=== PATIENT | female | born 1965 | race Caucasian/White ===

== ENCOUNTER → 2017-07-12 | Outpatient (CLI) | payer OTHER ==
[2013-12-05 12:31] VITALS: BMI 20.1
[~2017-07-12] MED LIST: CALC-515 PO; CALC500T6 PO; CHOL100062 PO; ESTR1PAT99 TD; FIBE1TAB5 PO; GADOBENATE 529MG/1ML 15ML VIAL IVP ONE; IBUP1TAB84 PO; Ibuprofen PO; MULT-1335 PO; OMEG-26 PO; PER PO
--- NOTE | 2017-07-12 14:23 | RADIOLOGY IMAGING REPORT ---
FACILITY: [facility] PATIENT NAME: Michelle Watters : 1965 MR: [id number] V: [id number] EXAM DATE: ORDERING PHYSICIAN: CHELSY KYLE TECHNOLOGIST: [facility] Patient: Michelle Watters : 1965 Visit/Account:[id number] Date of Sevice: 07/12/2017 BRAIN W W/O CONTRAST ADDITIONAL PERTINENT HISTORY: Blurred vision, diplopia COMPARISON STUDIES: None. TECHNIQUE: Multi-planar, multi-sequence brain MRI was performed with and without IV contrast adminis tration. Contrast: 13 mL MultiHance FINDINGS: Ventricles / sulci / fissures: Negative. Masses / hemorrhage / midline shift: Negative. White matter: There are several small foci of increased T2 and FLAIR signal intensity in the subcort ical white matter in the frontal lobes bilaterally. There is no associated contrast enhancement rest ricted diffusion or mass effect. Damico-white differentiation: Normal. Extra-axial fluid collections: Negative. Intracranial vasculature and dural sinuses: Negative. Skull base / calvarium: Negative. Visualized mastoid air cells / paranasal sinuses: Well aerated. Orbits: Negative. Upper neck:Negative. IMPRESSION: There are several small foci of increased T2 and FLAIR signal intensity in the subcortical white nhan er in the frontal lobes bilaterally which appears nonspecific with no evidence of contrast enhancemen t restricted diffusion mass effect or hemorrhage. This may represent subtle chronic microvascular is chemic changes. Differential diagnosis would include vasculitis or a mild demyelinating process. Report Dictated By: Christine Nunez MD at 07/12/2017 2:12 PM Report E-Signed By: Christine Nunez MD at 07/12/2017 2:19 PM WSN:[id number]
== END ==
LOC: MRI 12:22
PROVIDERS: ATTEND Physician Assistant Medical
DX: R94.09 Abnormal results of other function studies of central nervous system (principal)
CPT/HCPCS: 70553; A9577

== ENCOUNTER 2017-08-20 09:44 | Emergency (ER) | payer OTHER ==
[2013-12-05 12:31] VITALS: Wt 54.4 kg
[~2017-08-20 09:44] MED LIST changes: -GADOBENATE 529MG/1ML 15ML VIAL IVP ONE
--- NOTE | 2017-08-20 10:16 | ER Report ---
History and Physical Time Seen By MD: 10:16 HPI/ROS CHIEF COMPLAINT: Insomnia and anxiety HISTORY OF PRESENT ILLNESS: This is a 51 year old female. She is having severe insomnia since her brain surgery. 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 She has only slept about 1 hour in the last 24. She has a prescription for Lorazepam 0.5mg, and this has helped in the past, but not helping now. She has tried over the counter Unisom, which caused night terrors and no sleep. Past use of Benadryl has caused restlessness rather than sleepiness. She has been prescribed Zolpidem, but has not used this yet. Also given a sample pack of Belsomra, but did not sleep and seemed to worsen symptoms. She is seeing neurology in two days, but feels like she is at a point that she cannot wait that long. She has chronic symptoms of headache and blurred vision after her surgery, but otherwise doing alright. Allergies: Coded Allergies: No Known Drug Allergies (Unverified , 08/20/17) Home Meds Active Scripts Trazodone Hcl (TRAZODONE HCL) 150 Mg Tablet, 150 MG PO QHS, #10 TAB 0 Refills Prov:WALKER CHRISTIANSON MD 08/20/17 Diazepam (VALIUM) 10 Mg Tablet, 10 MG PO Q8H Y for ANXIETY, #15 TAB 0 Refills Prov:WALKER CHRISTIANSON MD 08/20/17 Estradiol (CLIMARA 0.1 MG) 1 Each Patch.tdwk, 0.1 EACH TD QWEEK, #4 PATCH.WK 12 Refills Prov:KATE DUPREE MD 12/05/13 Reported Medications Zolpidem Tartrate (AMBIEN) 10 Mg Tablet, 1 TAB PO QHS, TAB 08/20/17 Lorazepam (LORAZEPAM) 0.5 Mg Tablet, 0.5 MG PO Q4-6H 08/20/17 Lisinopril (LISINOPRIL) 10 Mg Tablet, 10 MG PO QDAY, TAB 08/20/17 Hydrochlorothiazide (HYDROCHLOROTHIAZIDE) 25 Mg Tablet, 12.5 TAB PO QDAY, TAB 08/20/17 Discontinued Scripts Oxycodone/Acetaminophen (OXYCODONE/ACETAMINOPHEN 5MG/325 MG) 1 Tab Tab, 1-2 TAB PO Q4H Y for PAIN, #30 TAB 0 Refills Prov:KATE DUPREE MD 12/05/13 [Ibuprofen] 800 MG TAB No Conflict Check, 800 MG PO Q8H Y for PAIN, #30 TAB 0 Refills Prov:KATE DUPREE MD 12/05/13 Reviewed Nurses Notes: Yes Constitutional Vital Sign - Last 24 Hours 08/20/17 08/20/17 10:23 11:15 Temp 98.7 Pulse 94 78 Resp 18 17 B/P (MAP) 113/90 110/75 (87) Pulse Ox 96 96 O2 Delivery Room Air Room Air Physical Exam General: Alert, but very distressed and anxious. Psych: normal speech pattern and content. Normal interactions. Extreme anxiety affect and mood. Reaction to stress, but no signs of hopelessness or depression at this time Medical Decision Making ED Course/Re-evaluation ED Course Discussion regarding medication options. No major neuro exam today, dealt mainly with trying to help control anxiety and sleep right now. Discussed several medications options. 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 Short term management by switching from Lorazepam to Valium 10mg, up to 3 times a day, to help with sleep and anxiety. Adding Trazodone 150mg at bedtime as well. Recommended against the Zolpidem at this time, although this can be tried if Valium and Trazodone is not effective. Decision to Disposition Date: Aug 20, 2017 Decision to Disposition Time: 10:56 Depart Departure Latest Vital Signs Vital Signs Date Time Temp Pulse Resp B/P (MAP) Pulse Ox O2 Delivery O2 Flow Rate FiO2 08/20/17 11:15 78 17 110/75 (87) 96 Room Air 08/20/17 10:23 98.7 Impression: Primary Impression: Insomnia Additional Impression: Anxiety Condition: Condition Unchanged Disposition: HOME OR SELF-CARE Referrals: JASVIR PONCE DO (PCP) New Scripts Trazodone Hcl (TRAZODONE HCL) 150 Mg Tablet 150 MG PO QHS, #10 TAB 0 Refills Prov: WALKER CHRISTIANSON MD 08/20/17 Diazepam (VALIUM) 10 Mg Tablet 10 MG PO Q8H Y for ANXIETY, #15 TAB 0 Refills Prov: WALKER CHRISTIANSON MD 08/20/17 Patient Instructions: Anxiety (ED), Insomnia (ED) Additional Instructions: For anxiety, try taking Valium 10mg tablets, every 8 hours as needed. This medicine taken at bedtime may be able to make you sleep. You can also try taking Trazodone 150mg at bedtime to help with sleep. Stop the Lorazepam. Hold off on taking the Ambien at this time, but this would be an option if the Valium and Trazodone do not work. You can take both Valium and Trazodone at bedtime if needed. Follow-up with your neurologist as planned. Problem Qualifiers Primary Impression: Insomnia Insomnia type: due to medical condition Qualified Codes: G47.01 - Insomnia due to medical condition WALKER CHRISTIANSON MD Aug 20, 2017 10:16
[2017-08-20] MEDS ORDERED: ZOLP-350 PO (11:01)
[2017-08-20] MEDS ORDERED: HYDR-2966 PO (11:01)
[2017-08-20] MEDS ORDERED: LISI-362 PO (11:01)
[2017-08-20] MEDS ORDERED: LORA-630 PO (11:01)
[2017-08-20] MEDS ORDERED: DIAZ-305 PO (11:04)
[2017-08-20] MEDS ORDERED: TRAZ150T8 PO (11:04)
[2017-08-20 11:15] VITALS: BP 110/75
== END 2017-08-20 11:15 | disposition home or self-care (01) ==
LOC: ER 10:00
DX: G47.01 Insomnia due to medical condition (principal); F41.9 Anxiety disorder, unspecified
CPT/HCPCS: 99281

== ENCOUNTER → 2017-12-19 | Outpatient (CLI) | payer OTHER ==
[2013-12-05 12:31] VITALS: BMI 20.1
[~2017-12-19] MED LIST changes: +AMLO-113 PO; +ATOR10TA24 PO; +BUSP15TA69 PO; +CETI10CA8 PO; +DIAZ-305 PO; +HYDR-2966 PO; +LISI-362 PO; +LORA-630 PO; +LOSA25TA52 PO; +MELA1TAB38; +TRAZ150T8 PO; +ZOLP-350 PO
== END ==
LOC: AUD 09:00
PROVIDERS: ATTEND Otolaryngology
DX: H92.03 Otalgia, bilateral (principal); H93.12 Tinnitus, left ear
CPT/HCPCS: 92567

== ENCOUNTER → 2018-03-27 | Outpatient (CLI) | payer OTHER ==
[2013-12-05 12:31] VITALS: BMI 20.1
[~2018-03-27] MED LIST changes: -AMLO-113 PO; +AMLO-127 PO; -LOSA25TA52 PO; +LOSA25TA57 PO
--- NOTE | 2018-03-27 13:13 | EKG ---
FACILITY: [facility] PATIENT NAME: JEFFERSON LARRY : [id number] MR: [id number] V: [id number] EXAM DATE: ORDERING PHYSICIAN: NAPOLEON AVALOS TECHNOLOGIST: CHARLINE Ortiz Reason : PRE-OP KNEE Blood Pressure : / mmHG Vent. Rate : 074 BPM Atrial Rate : 074 BPM P-R Int : 172 ms QRS Dur : 092 ms QT Int : 400 ms P-R-T Axes : 079 086 077 degrees QTc Int : 444 ms Normal sinus rhythm Biatrial enlargement Abnormal ECG No previous ECGs available Confirmed by NAPOLEON BALBUENA ([id number]) on 03/28/2018 6:25:00 AM Referred By: BAILEY Confirmed By:NAPOLEON BALBUENA
[2018-03-27 13:17] LABS: PLATELET COUNT, AUTOMATED 230 K/uL (150-450)
== END ==
LOC: LAB 12:56
PROVIDERS: ATTEND Anesthesiology
DX: Z01.812 Encounter for preprocedural laboratory examination (principal); Z01.810 Encounter for preprocedural cardiovascular examination; R94.31 Abnormal electrocardiogram [ECG] [EKG]
CPT/HCPCS: 36415; 85025; 93005